=== PATIENT | male | born 1985 | race Caucasian/White ===

== ENCOUNTER 2021-10-24 22:40 | Emergency (ER) | payer SELFPAY ==
[~2021-10-24] VITALS: Ht 175.3 cm; Wt 113.4 kg
[2021-10-24] MEDS ORDERED: IBUP800T54 PO (23:24)
[2021-10-24] MEDS ORDERED: ACET-2605 PO (23:24)
[2021-10-24 23:27] VITALS: BP 135/77
--- NOTE | 2021-10-24 23:27 | NUR ---
Patient discharged to home in stable condition. Written and verbal after care instructions given. Patient verbalizes understanding of instruction.
[2021-10-24] MEDS ORDERED: IBUPROFEN 400 MG TABLET ONE (23:30)
[2021-10-24] MEDS: IBUPROFEN 400 MG TABLET PO ONE (23:30)
== END 2021-10-24 23:31 | disposition home or self-care (01) ==
LOC: ER 22:52
DX: F07.81 Postconcussional syndrome (principal); M25.512 Pain in left shoulder; R51.9 Headache, unspecified